=== PATIENT | male | born 1965 | race Caucasian/White ===

== ENCOUNTER 2021-06-09 16:32 | Inpatient (IN) ==
[2021-06-09] MEDS ORDERED: 0.9 % Sodium Chloride 1,000 ML IVC ONE (16:42)
[2021-06-09 17:46] LABS: Basophils # 0.1 K/mcL (0.0-0.2); Basophils % 0.4 %; Eosinophils # 0.1 K/mcL (0.0-0.6); Eosinophils % 0.5 %; Hemoglobin 15.9 g/dL (12.9-16.9); Immature Granulocytes % 0.7 % (0-4); Lymphocytes # 2.1 K/mcL (0.6-4.6); Lymphocytes % 12.6 %; Mean Corpuscular HGB Conc 33.8 g/dL (31.6-35.5); Mean Corpuscular Hemoglobin 32.2 pg (28.0-33.3); Mean Corpuscular Volume 95.1 fL (83.0-100.0); Mean Platelet Volume 11.1 fL (9.4-12.4); Monocytes # 1.3 K/mcL (0.0-1.3); Monocytes % 7.8 %; Platelet Count 394 K/mcL (140-400); Red Blood Count 4.94 M/mcL (4.19-5.50); Red Cell Distribution Width 12.3 % (11.5-14.5); White Blood Count 16.6 K/mcL (4.3-11.1)
[2021-06-09 18:00] LABS: Bilirubin,Urine Negative (Negative); Blood,Urine Negative (Negative); Clarity,Urine Clear (Clear); Color,Urine Colorless (Yellow); Glucose,Urine (UA) Normal (Normal); Ketones,Urine Negative (Negative); Leukocyte Esterase,Urine Negative (Negative); Nitrite,Urine Negative (Negative); Protein,Urine Trace mg/dL (Neg-Trace); Specific Gravity,Urine > 1.030 (1.010-1.025); Urobilinogen,Urine Normal (Normal)
[2021-06-09 18:02] LABS: Alanine Aminotransferase 34 Units/L (7-52); Albumin 4.3 g/dL (3.5-5.7); Albumin/Globulin Ratio 1.2 (1.1-2.2); Alkaline Phosphatase 129 Units/L (34-104); Aspartate Amino Transferase 19 Units/L (13-39); BUN/Creatinine Ratio 17 (6-26); Bilirubin,Direct 0.2 mg/dL (0.0-0.2); Bilirubin,Indirect 0.6 mg/dL (0.0-1.0); Bilirubin,Total 0.8 mg/dL (0.3-1.0); Blood Urea Nitrogen 13 mg/dL (6-20); Calcium 9.8 mg/dL (8.6-10.3); Carbon Dioxide 24 mEq/L (23-29); Chloride 103 mEq/L (98-107); Globulin 3.6 g/dL (2.4-3.5); Glucose 98 mg/dL (70-105); Lipase 22 Units/L (11-82); Osmolality,Calculated 284 (280-300); Potassium 3.9 mEq/L (3.5-5.1); Sodium 137 mEq/L (136-145); Total Protein 7.9 g/dL (6.4-8.9); eGFR For African Americans > 60 (> 60); eGFR For Non-African Americans > 60 (> 60)
[2021-06-09] MEDS ORDERED: MetroNIDAZOLE 500 MG/100 ML 500 MG/100 ML BAG IVPB ONE ×2 (18:42→22:00)
[2021-06-09] MEDS ORDERED: Cefepime HCl 2,000 MG in 0.9 % Sodium Chloride Mini Bag 100 ML IVPB STA (18:44)
[2021-06-09] MEDS ORDERED: Ketorolac 30 MG/ML VIAL IVP ONE (18:46)
[2021-06-09] MEDS ORDERED: *HR* HYDROcodone/Acet 5/325 mg TABLET PO ONE (18:54)
[2021-06-09] MEDS ORDERED: Melatonin 3 MG TABLET PO PRN (20:21)
[2021-06-09] MEDS ORDERED: Ondansetron 4 MG/2 ML VIAL IVP PRN (20:21)
[2021-06-09] MEDS ORDERED: Naloxone 0.4 MG/ML INJ IVP PRN (20:21)
[2021-06-09] MEDS: Ringers Solution, Lactated 1,000 ML IVC SCH (22:13)
[2021-06-10] MEDS: Fluconazole 400 MG/200 ML 400 MG/200 ML BAG IVPB SCH ×2 (00:34→23:49)
[2021-06-10 01:23] LABS: Basophils # 0.1 K/mcL (0.0-0.2); Basophils % 0.4 %; Eosinophils # 0.1 K/mcL (0.0-0.6); Eosinophils % 0.6 %; Hematocrit 43.1 % (37.5-50.1); Hemoglobin 14.7 g/dL (12.9-16.9); Immature Granulocytes % 0.5 % (0-4); Lymphocytes # 2.6 K/mcL (0.6-4.6); Lymphocytes % 19.3 %; Mean Corpuscular HGB Conc 34.1 g/dL (31.6-35.5); Mean Corpuscular Hemoglobin 32.7 pg (28.0-33.3); Monocytes # 1.1 K/mcL (0.0-1.3); Monocytes % 8.5 %; Neutrophils # 9.4 K/mcL (1.6-8.9); Platelet Count 321 K/mcL (140-400); Red Blood Count 4.49 M/mcL (4.19-5.50); Red Cell Distribution Width 12.3 % (11.5-14.5); Segmented Neutrophils % 70.7 %; White Blood Count 13.3 K/mcL (4.3-11.1)
[2021-06-10 01:33] LABS: INR 1.2; Prothrombin Time 13.3 Seconds (9.4-12.1)
[2021-06-10 01:42] LABS: Alanine Aminotransferase 27 Units/L (7-52); Albumin 3.5 g/dL (3.5-5.7); Albumin/Globulin Ratio 1.1 (1.1-2.2); Alkaline Phosphatase 107 Units/L (34-104); Aspartate Amino Transferase 17 Units/L (13-39); BUN/Creatinine Ratio 19 (6-26); Bilirubin,Total 0.8 mg/dL (0.3-1.0); Blood Urea Nitrogen 14 mg/dL (6-20); Calcium 8.9 mg/dL (8.6-10.3); Carbon Dioxide 23 mEq/L (23-29); Chloride 107 mEq/L (98-107); Globulin 3.1 g/dL (2.4-3.5); Glucose 94 mg/dL (70-105); Magnesium 1.9 mg/dL (1.6-2.6); Osmolality,Calculated 284 (280-300); Sodium 137 mEq/L (136-145); Total Protein 6.6 g/dL (6.4-8.9); eGFR For African Americans > 60 (> 60); eGFR For Non-African Americans > 60 (> 60)
[2021-06-10] MEDS: MetroNIDAZOLE 500 MG/100 ML 500 MG/100 ML BAG IVPB SCH ×3 (05:15→21:13)
[2021-06-10] MEDS ORDERED: MOM Conc 10 ML UD.LIQ PO SCH (09:00)
[2021-06-10] MEDS: MOM Conc 10 ML UD.LIQ PO SCH ×2 (09:47→14:26)
[2021-06-10] MEDS: Thiamine (B-1) 100 MG, Folic Acid 1 MG, MVI, adult with vitamin K 10 ML in 0.9 % Sodi... IVPB SCH (09:48)
[2021-06-10] MEDS: Ringers Solution, Lactated 1,000 ML IVC SCH (10:40)
[2021-06-10] MEDS: Ketorolac 15 MG/ML VIAL IVP PRN (21:18)
[2021-06-11 02:51] LABS: Hematocrit 40.3 % (37.5-50.1); Hemoglobin 13.9 g/dL (12.9-16.9); Mean Corpuscular HGB Conc 34.5 g/dL (31.6-35.5); Mean Corpuscular Hemoglobin 32.7 pg (28.0-33.3); Mean Corpuscular Volume 94.8 fL (83.0-100.0); Mean Platelet Volume 11.1 fL (9.4-12.4); Platelet Count 281 K/mcL (140-400); Red Blood Count 4.25 M/mcL (4.19-5.50); Red Cell Distribution Width 11.9 % (11.5-14.5); White Blood Count 11.7 K/mcL (4.3-11.1)
[2021-06-11 03:04] LABS: BUN/Creatinine Ratio 15 (6-26); Blood Urea Nitrogen 10 mg/dL (6-20); Calcium 8.9 mg/dL (8.6-10.3); Carbon Dioxide 25 mEq/L (23-29); Chloride 103 mEq/L (98-107); Glucose 90 mg/dL (70-105); Osmolality,Calculated 279 (280-300); Sodium 135 mEq/L (136-145); eGFR For African Americans > 60 (> 60); eGFR For Non-African Americans > 60 (> 60)
[2021-06-11] MEDS: MetroNIDAZOLE 500 MG/100 ML 500 MG/100 ML BAG IVPB SCH ×3 (05:40→21:59)
[2021-06-11] MEDS: Thiamine (B-1) 100 MG, Folic Acid 1 MG, MVI, adult with vitamin K 10 ML in 0.9 % Sodi... IVPB SCH (18:19)
[2021-06-11] MEDS: Ketorolac 15 MG/ML VIAL IVP PRN (18:48)
[2021-06-12] MEDS: Ketorolac 15 MG/ML VIAL IVP PRN ×3 (01:36→22:56)
[2021-06-12] MEDS: Fluconazole 400 MG/200 ML 400 MG/200 ML BAG IVPB SCH ×2 (01:36→23:18)
[2021-06-12] MEDS: MetroNIDAZOLE 500 MG/100 ML 500 MG/100 ML BAG IVPB SCH ×3 (05:48→21:59)
[2021-06-12] MEDS ORDERED: *HR* HYDROmorphone PF 0.5 MG/0.5 ML SYRINGE IVP PRN (07:05)
[2021-06-12] MEDS ORDERED: Ondansetron 4 MG/2 ML VIAL IVP PRN ×3 (07:05→12:05)
[2021-06-12] MEDS ORDERED: Ringers Solution, Lactated 1,000 ML IVC SCH (07:15)
[2021-06-12] MEDS ORDERED: *HR* Rocuronium Bromide 50 MG/5 ML VIAL ONE ×2 (07:33→09:01)
[2021-06-12] MEDS ORDERED: Ondansetron 4 MG/2 ML VIAL ONE (07:33)
[2021-06-12] MEDS ORDERED: *HR* Midazolam HCl 2 MG/2 ML VIAL ONE ×2 (07:33→10:47)
[2021-06-12] MEDS ORDERED: Lidocaine HCL 4 ML Topical Solution (Laryng-O-Jet Kit Sterile Pak) TP ONE (07:33)
[2021-06-12] MEDS ORDERED: Lidocaine -MPF 2% 5 ML VIAL ONE (07:33)
[2021-06-12] MEDS ORDERED: *HR* FentaNYL (PF) 100 MCG/2 ML VIAL ONE ×2 (07:33→09:42)
[2021-06-12] MEDS ORDERED: *HR* Propofol 200 MG/20 ML VIAL IVP ONE (07:33)
[2021-06-12] MEDS ORDERED: Albumin Human 5% 25.0 GM/500 ML IV.SOLN ONE (08:01)
[2021-06-12] MEDS ORDERED: Acetaminophen IV 1,000 MG/100 ML BAG IVPB ONE (08:02)
[2021-06-12] MEDS ORDERED: *HR* Magnesium Sulfate 1 GM/2 ML VIAL ONE (09:06)
[2021-06-12] MEDS ORDERED: *HR* HYDROMORPHONE 2 MG/ML VIAL ONE (10:14)
[2021-06-12] MEDS ORDERED: Sugammadex Sodium 200 MG/2 ML VIAL IV ONE (10:20)
[2021-06-12] MEDS ORDERED: Naloxone 0.4 MG/ML INJ IVP PRN (12:05)
[2021-06-12] MEDS: Metoprolol XL (24 HR) Succ 25 MG TAB.ER.24H PO SCH (16:38)
[2021-06-12 17:08] LABS: Hematocrit 40.8 % (37.5-50.1); Hemoglobin 14.3 g/dL (12.9-16.9); Mean Corpuscular Volume 94.2 fL (83.0-100.0); Mean Platelet Volume 11.3 fL (9.4-12.4); Platelet Count 308 K/mcL (140-400); Red Blood Count 4.33 M/mcL (4.19-5.50); Red Cell Distribution Width 11.8 % (11.5-14.5); White Blood Count 15.7 K/mcL (4.3-11.1)
[2021-06-12 17:22] LABS: BUN/Creatinine Ratio 13 (6-26); Blood Urea Nitrogen 10 mg/dL (6-20); Calcium 9.2 mg/dL (8.6-10.3); Carbon Dioxide 24 mEq/L (23-29); Chloride 103 mEq/L (98-107); Glucose 191 mg/dL (70-105); Osmolality,Calculated 286 (280-300); Potassium 4.4 mEq/L (3.5-5.1); Sodium 136 mEq/L (136-145); eGFR For African Americans > 60 (> 60); eGFR For Non-African Americans > 60 (> 60)
[2021-06-12] MEDS ORDERED: Thiamine (B-1) 100 MG, Folic Acid 1 MG, MVI, adult with vitamin K 10 ML in 0.9 % Sodi... IVPB SCH (18:00)
[2021-06-12] MEDS: Ringers Solution, Lactated 1,000 ML IVC SCH ×2 (19:36→21:40)
[2021-06-12] MEDS: Acetaminophen IV 1,000 MG/100 ML BAG IVPB SCH (22:56)
[2021-06-12] MEDS: Melatonin 3 MG TABLET PO PRN (22:56)
[2021-06-13] MEDS: Ringers Solution, Lactated 1,000 ML IVC SCH ×3 (03:30→17:37)
[2021-06-13 05:06] LABS: Hematocrit 35.1 % (37.5-50.1); Mean Corpuscular HGB Conc 34.5 g/dL (31.6-35.5); Mean Corpuscular Hemoglobin 32.4 pg (28.0-33.3); Mean Corpuscular Volume 94.1 fL (83.0-100.0); Mean Platelet Volume 11.6 fL (9.4-12.4); Platelet Count 274 K/mcL (140-400); Red Blood Count 3.73 M/mcL (4.19-5.50); Red Cell Distribution Width 11.9 % (11.5-14.5); White Blood Count 17.5 K/mcL (4.3-11.1)
[2021-06-13 05:11] LABS: Hemoglobin 12.1 g/dL (12.9-16.9)
[2021-06-13 05:22] LABS: BUN/Creatinine Ratio 16 (6-26); Blood Urea Nitrogen 9 mg/dL (6-20); Calcium 8.8 mg/dL (8.6-10.3); Carbon Dioxide 24 mEq/L (23-29); Chloride 104 mEq/L (98-107); Glucose 175 mg/dL (70-105); Osmolality,Calculated 281 (280-300); Potassium 4.6 mEq/L (3.5-5.1); Sodium 134 mEq/L (136-145); eGFR For African Americans > 60 (> 60); eGFR For Non-African Americans > 60 (> 60)
[2021-06-13] MEDS: Acetaminophen IV 1,000 MG/100 ML BAG IVPB SCH ×4 (05:27→23:33)
[2021-06-13] MEDS: MetroNIDAZOLE 500 MG/100 ML 500 MG/100 ML BAG IVPB SCH ×3 (05:49→23:49)
[2021-06-13] MEDS: Metoprolol XL (24 HR) Succ 25 MG TAB.ER.24H PO SCH (07:44)
[2021-06-13] MEDS: Melatonin 3 MG TABLET PO PRN (23:04)
[2021-06-14] MEDS: Fluconazole 400 MG/200 ML 400 MG/200 ML BAG IVPB SCH (01:01)
[2021-06-14] MEDS: Ringers Solution, Lactated 1,000 ML IVC SCH ×2 (03:03→10:40)
[2021-06-14] MEDS: Acetaminophen IV 1,000 MG/100 ML BAG IVPB SCH ×3 (05:45→18:08)
[2021-06-14 05:51] LABS: Hematocrit 33.2 % (37.5-50.1); Hemoglobin 10.9 g/dL (12.9-16.9); Mean Corpuscular HGB Conc 32.8 g/dL (31.6-35.5); Mean Corpuscular Hemoglobin 31.8 pg (28.0-33.3); Mean Corpuscular Volume 96.8 fL (83.0-100.0); Mean Platelet Volume 11.8 fL (9.4-12.4); Platelet Count 256 K/mcL (140-400); Red Blood Count 3.43 M/mcL (4.19-5.50); Red Cell Distribution Width 12.3 % (11.5-14.5); White Blood Count 14.1 K/mcL (4.3-11.1)
[2021-06-14] MEDS: MetroNIDAZOLE 500 MG/100 ML 500 MG/100 ML BAG IVPB SCH ×3 (06:04→20:26)
[2021-06-14 06:16] LABS: BUN/Creatinine Ratio 16 (6-26); Blood Urea Nitrogen 9 mg/dL (6-20); Calcium 8.9 mg/dL (8.6-10.3); Carbon Dioxide 26 mEq/L (23-29); Chloride 103 mEq/L (98-107); Glucose 118 mg/dL (70-105); Osmolality,Calculated 280 (280-300); Potassium 4.1 mEq/L (3.5-5.1); Sodium 135 mEq/L (136-145); eGFR For African Americans > 60 (> 60); eGFR For Non-African Americans > 60 (> 60)
[2021-06-14] MEDS: Metoprolol XL (24 HR) Succ 25 MG TAB.ER.24H PO SCH (10:40)
[2021-06-15] MEDS: Fluconazole 400 MG/200 ML 400 MG/200 ML BAG IVPB SCH (00:55)
[2021-06-15] MEDS: Ringers Solution, Lactated 1,000 ML IVC SCH (00:57)
[2021-06-15] MEDS: Acetaminophen IV 1,000 MG/100 ML BAG IVPB SCH ×3 (00:57→11:42)
[2021-06-15 06:17] LABS: Hematocrit 33.5 % (37.5-50.1); Hemoglobin 11.3 g/dL (12.9-16.9); Mean Corpuscular HGB Conc 33.7 g/dL (31.6-35.5); Mean Corpuscular Hemoglobin 32.5 pg (28.0-33.3); Mean Corpuscular Volume 96.3 fL (83.0-100.0); Mean Platelet Volume 12.1 fL (9.4-12.4); Platelet Count 256 K/mcL (140-400); Red Blood Count 3.48 M/mcL (4.19-5.50); Red Cell Distribution Width 12.3 % (11.5-14.5); White Blood Count 10.8 K/mcL (4.3-11.1)
[2021-06-15] MEDS: MetroNIDAZOLE 500 MG/100 ML 500 MG/100 ML BAG IVPB SCH (06:43)
[2021-06-15 06:47] LABS: BUN/Creatinine Ratio 11 (6-26); Blood Urea Nitrogen 7 mg/dL (6-20); Calcium 8.9 mg/dL (8.6-10.3); Carbon Dioxide 28 mEq/L (23-29); Chloride 103 mEq/L (98-107); Glucose 88 mg/dL (70-105); Osmolality,Calculated 285 (280-300); Potassium 3.6 mEq/L (3.5-5.1); Sodium 139 mEq/L (136-145); eGFR For African Americans > 60 (> 60); eGFR For Non-African Americans > 60 (> 60)
[2021-06-15] MEDS: Metoprolol XL (24 HR) Succ 25 MG TAB.ER.24H PO SCH (09:53)
[2021-06-15 10:56] VITALS: BP 147/84; PULSE 65; TEMP 98.2; O2SAT 93
[2021-06-15] MEDS ORDERED: metroNIDAZOLE 500 MG TABLET PO SCH (15:00)
== END 2021-06-15 16:50 | disposition home or self-care (01) | DRG 854 ==
LOC: 3BNU 16:32 → EMEROOARM 16:32 → SUATTDRO 19:06 → 3BNU 20:05
PROVIDERS: ADMIT Internal Medicine; ATTEND Registered Nurse

== ENCOUNTER 2021-11-03 12:18 | Inpatient (IN) ==
[2021-11-03] MEDS ORDERED: Clindamycin 900 MG/50 ML 900 MG/50 ML IV.SOLN IVPB ONE (12:35)
[2021-11-03] MEDS ORDERED: Ringers Solution, Lactated 1,000 ML IVC SCH (12:45)
[2021-11-03] MEDS ORDERED: Acetaminophen IV 1,000 MG/100 ML BAG IVPB ONE (13:04)
[2021-11-03] MEDS ORDERED: Ondansetron 4 MG/2 ML VIAL IVP PRN ×2 (13:13→21:34)
[2021-11-03] MEDS ORDERED: Albuterol 2.5 MG/3 ML NEBULIZER IH PRN (13:13)
[2021-11-03] MEDS ORDERED: *HR* Meperidine 25 MG/ML SYRINGE IVP PRN (13:13)
[2021-11-03] MEDS ORDERED: Lidocaine -MPF 2% 5 ML VIAL ONE ×2 (13:26→19:15)
[2021-11-03] MEDS ORDERED: Ondansetron 4 MG/2 ML VIAL ONE (13:26)
[2021-11-03] MEDS ORDERED: *HR* FentaNYL (PF) 100 MCG/2 ML VIAL ONE ×2 (13:27→19:31)
[2021-11-03] MEDS ORDERED: *HR* Midazolam HCl 2 MG/2 ML VIAL ONE (13:27)
[2021-11-03] MEDS ORDERED: *HR* HYDROMORPHONE 2 MG/ML VIAL ONE (13:27)
[2021-11-03] MEDS ORDERED: *HR* Rocuronium Bromide 50 MG/5 ML VIAL ONE ×3 (13:27→18:58)
[2021-11-03] MEDS ORDERED: Lidocaine HCL 4 ML Topical Solution (Laryng-O-Jet Kit Sterile Pak) TP ONE (13:27)
[2021-11-03] MEDS ORDERED: *HR* Propofol 200 MG/20 ML VIAL IVP ONE (13:27)
[2021-11-03] MEDS ORDERED: Ketamine HCL *QUVA* 50mg (1mL) SYRINGE ONE (16:07)
[2021-11-03] MEDS ORDERED: *HR* Metoprolol 5 MG/5 ML VIAL IVP ONE (17:02)
[2021-11-03] MEDS ORDERED: *HR* Magnesium Sulfate 1 GM/2 ML VIAL ONE (17:59)
[2021-11-03] MEDS ORDERED: *HR* Labetalol 20 MG/4 ML SYRINGE IVP ONE (18:28)
[2021-11-03] MEDS: *HR* HYDROmorphone PF 0.5 MG/0.5 ML SYRINGE IVP PRN ×4 (20:00→20:40)
[2021-11-03] MEDS ORDERED: *HR* Metoprolol 5 MG/5 ML VIAL IVP PRN (21:34)
[2021-11-03] MEDS ORDERED: Acetaminophen IV 1,000 MG/100 ML BAG IVPB SCH (21:34)
[2021-11-03] MEDS ORDERED: MetroNIDAZOLE 500 MG/100 ML 500 MG/100 ML BAG IVPB SCH (21:34)
[2021-11-03] MEDS ORDERED: Naloxone 0.4 MG/ML INJ IVP PRN (21:34)
[2021-11-03] MEDS: 0.9 % Sodium Chloride 1,000 ML IVC SCH (22:15)
[2021-11-03] MEDS: Ketorolac 30 MG/ML VIAL IVP SCH (22:21)
[2021-11-03] MEDS: *HR* Metoprolol 5 MG/5 ML VIAL IVP SCH (22:27)
[2021-11-04] MEDS: Ketorolac 30 MG/ML VIAL IVP SCH ×4 (03:20→20:38)
[2021-11-04] MEDS: *HR* Metoprolol 5 MG/5 ML VIAL IVP SCH ×4 (03:22→22:31)
[2021-11-04] MEDS: Acetaminophen IV 1,000 MG/100 ML BAG IVPB SCH ×4 (04:47→23:05)
[2021-11-04 06:14] LABS: Basophils % 0.1 %; Hematocrit 46.7 % (37.5-50.1); Hemoglobin 16.2 g/dL (12.9-16.9); Immature Granulocytes % 0.4 % (0-4); Lymphocytes # 0.7 K/mcL (0.6-4.6); Lymphocytes % 4.4 %; Mean Corpuscular HGB Conc 34.7 g/dL (31.6-35.5); Mean Corpuscular Hemoglobin 32.2 pg (28.0-33.3); Mean Corpuscular Volume 92.8 fL (83.0-100.0); Mean Platelet Volume 11.5 fL (9.4-12.4); Monocytes # 1.5 K/mcL (0.0-1.3); Monocytes % 9.3 %; Neutrophils # 13.9 K/mcL (1.6-8.9); Platelet Count 221 K/mcL (140-400); Red Blood Count 5.03 M/mcL (4.19-5.50); Red Cell Distribution Width 14.4 % (11.5-14.5); Segmented Neutrophils % 85.8 %; White Blood Count 16.3 K/mcL (4.3-11.1)
[2021-11-04 07:06] LABS: BUN/Creatinine Ratio 21 (6-26); Blood Urea Nitrogen 17 mg/dL (6-20); Calcium 8.8 mg/dL (8.6-10.3); Carbon Dioxide 21 mEq/L (23-29); Chloride 104 mEq/L (98-107); Glucose 151 mg/dL (70-105); Magnesium 2.1 mg/dL (1.6-2.6); Osmolality,Calculated 282 (280-300); Phosphorous 3.8 mg/dL (2.7-4.5); Potassium 4.4 mEq/L (3.5-5.1); Sodium 134 mEq/L (136-145); eGFR For African Americans > 60 (> 60); eGFR For Non-African Americans > 60 (> 60)
[2021-11-04] MEDS: Pantoprazole 40 MG VIAL IVP SCH (07:55)
[2021-11-04] MEDS: MetroNIDAZOLE 500 MG/100 ML 500 MG/100 ML BAG IVPB SCH ×2 (07:57→14:31)
[2021-11-04] MEDS: 0.9 % Sodium Chloride 1,000 ML IVC SCH ×3 (07:57→23:04)
[2021-11-04] MEDS ORDERED: Orphenadrine 60 MG/2 ML VIAL IVP PRN (09:45)
[2021-11-04] MEDS: Ipratropium/Albuterol Neb 3 ML IH SCH ×4 (11:56→23:22)
[2021-11-04] MEDS: *HR* Heparin 5,000 UNIT/ML VIAL SQ SCH (16:45)
[2021-11-05 02:15] LABS: Basophils % 0.1 %; Eosinophils % 0.1 %; Hematocrit 38.5 % (37.5-50.1); Immature Granulocytes % 0.5 % (0-4); Lymphocytes # 1.5 K/mcL (0.6-4.6); Lymphocytes % 13.1 %; Mean Corpuscular HGB Conc 34.8 g/dL (31.6-35.5); Mean Corpuscular Hemoglobin 32.4 pg (28.0-33.3); Mean Corpuscular Volume 93.2 fL (83.0-100.0); Mean Platelet Volume 11.6 fL (9.4-12.4); Monocytes # 1.1 K/mcL (0.0-1.3); Monocytes % 10.2 %; Neutrophils # 8.5 K/mcL (1.6-8.9); Platelet Count 169 K/mcL (140-400); Red Blood Count 4.13 M/mcL (4.19-5.50); Red Cell Distribution Width 14.6 % (11.5-14.5); White Blood Count 11.1 K/mcL (4.3-11.1)
[2021-11-05 02:31] LABS: Hemoglobin 13.4 g/dL (12.9-16.9)
[2021-11-05 02:32] LABS: BUN/Creatinine Ratio 19 (6-26); Blood Urea Nitrogen 13 mg/dL (6-20); Calcium 8.2 mg/dL (8.6-10.3); Carbon Dioxide 24 mEq/L (23-29); Chloride 105 mEq/L (98-107); Glucose 100 mg/dL (70-105); Magnesium 1.9 mg/dL (1.6-2.6); Osmolality,Calculated 280 (280-300); Phosphorous 2.6 mg/dL (2.7-4.5); Potassium 3.5 mEq/L (3.5-5.1); Sodium 135 mEq/L (136-145); eGFR For African Americans > 60 (> 60); eGFR For Non-African Americans > 60 (> 60)
[2021-11-05] MEDS: Ketorolac 30 MG/ML VIAL IVP SCH ×4 (02:53→21:36)
[2021-11-05] MEDS: *HR* Metoprolol 5 MG/5 ML VIAL IVP SCH ×4 (02:53→21:36)
[2021-11-05] MEDS: Ipratropium/Albuterol Neb 3 ML IH SCH ×2 (03:48→07:35)
[2021-11-05] MEDS: Acetaminophen IV 1,000 MG/100 ML BAG IVPB SCH ×4 (05:04→23:26)
[2021-11-05] MEDS: *HR* Heparin 5,000 UNIT/ML VIAL SQ SCH ×2 (05:05→17:25)
[2021-11-05] MEDS: 0.9 % Sodium Chloride 1,000 ML IVC SCH ×3 (06:53→19:07)
[2021-11-05] MEDS: Pantoprazole 40 MG VIAL IVP SCH (09:14)
[2021-11-05] MEDS: Gabapentin 300 MG CAPSULE PO SCH ×2 (09:15→09:35)
[2021-11-05] MEDS ORDERED: traZODone 50 MG TABLET PO ONE (21:00)
[2021-11-05] MEDS: traZODone 50 MG TABLET PO SCH (21:34)
[2021-11-06 01:36] LABS: Basophils % 0.3 %; Eosinophils # 0.1 K/mcL (0.0-0.6); Eosinophils % 1.4 %; Hemoglobin 12.6 g/dL (12.9-16.9); Immature Granulocytes % 0.8 % (0-4); Lymphocytes # 1.6 K/mcL (0.6-4.6); Lymphocytes % 16.3 %; Mean Corpuscular HGB Conc 34.1 g/dL (31.6-35.5); Mean Corpuscular Hemoglobin 32.1 pg (28.0-33.3); Mean Corpuscular Volume 94.1 fL (83.0-100.0); Mean Platelet Volume 11.8 fL (9.4-12.4); Monocytes # 0.8 K/mcL (0.0-1.3); Monocytes % 8.3 %; Neutrophils # 7.1 K/mcL (1.6-8.9); Platelet Count 175 K/mcL (140-400); Red Blood Count 3.93 M/mcL (4.19-5.50); Red Cell Distribution Width 14.5 % (11.5-14.5); Segmented Neutrophils % 72.9 %; White Blood Count 9.8 K/mcL (4.3-11.1)
[2021-11-06 01:48] LABS: BUN/Creatinine Ratio 12 (6-26); Blood Urea Nitrogen 9 mg/dL (6-20); Calcium 8.5 mg/dL (8.6-10.3); Carbon Dioxide 23 mEq/L (23-29); Chloride 107 mEq/L (98-107); Glucose 80 mg/dL (70-105); Magnesium 1.9 mg/dL (1.6-2.6); Osmolality,Calculated 282 (280-300); Phosphorous 2.4 mg/dL (2.7-4.5); Potassium 3.7 mEq/L (3.5-5.1); Sodium 137 mEq/L (136-145); eGFR For African Americans > 60 (> 60); eGFR For Non-African Americans > 60 (> 60)
[2021-11-06] MEDS: Ketorolac 30 MG/ML VIAL IVP SCH (03:20)
[2021-11-06] MEDS: *HR* Metoprolol 5 MG/5 ML VIAL IVP SCH (03:20)
[2021-11-06] MEDS: Acetaminophen IV 1,000 MG/100 ML BAG IVPB SCH (04:33)
[2021-11-06] MEDS: *HR* Heparin 5,000 UNIT/ML VIAL SQ SCH ×2 (04:34→16:08)
[2021-11-06] MEDS: Pantoprazole 40 MG VIAL IVP SCH (08:32)
[2021-11-06] MEDS: Gabapentin 300 MG CAPSULE PO SCH (08:32)
[2021-11-06] MEDS: *HR* OxyCODONE Immed Rel 5 MG TABLET PO PRN ×2 (08:39→23:14)
[2021-11-06] MEDS: lisinopriL 20 MG TABLET PO SCH (08:39)
[2021-11-06] MEDS: Ibuprofen 800 MG TABLET PO SCH ×3 (08:39→23:11)
[2021-11-06] MEDS: Metoprolol XL (24 HR) Succ 25 MG TAB.ER.24H PO SCH (08:39)
[2021-11-06] MEDS: traZODone 50 MG TABLET PO SCH (21:17)
[2021-11-07 04:39] LABS: Basophils % 0.5 %; Eosinophils # 0.3 K/mcL (0.0-0.6); Eosinophils % 4.1 %; Hematocrit 36.1 % (37.5-50.1); Hemoglobin 12.6 g/dL (12.9-16.9); Immature Granulocytes % 0.8 % (0-4); Lymphocytes # 1.5 K/mcL (0.6-4.6); Lymphocytes % 18.4 %; Mean Corpuscular HGB Conc 34.9 g/dL (31.6-35.5); Mean Corpuscular Hemoglobin 32.4 pg (28.0-33.3); Mean Corpuscular Volume 92.8 fL (83.0-100.0); Mean Platelet Volume 11.2 fL (9.4-12.4); Monocytes # 0.8 K/mcL (0.0-1.3); Monocytes % 9.3 %; Neutrophils # 5.6 K/mcL (1.6-8.9); Platelet Count 202 K/mcL (140-400); Red Blood Count 3.89 M/mcL (4.19-5.50); Red Cell Distribution Width 14.4 % (11.5-14.5); Segmented Neutrophils % 66.9 %; White Blood Count 8.3 K/mcL (4.3-11.1)
[2021-11-07] MEDS: *HR* Heparin 5,000 UNIT/ML VIAL SQ SCH ×2 (04:53→16:12)
[2021-11-07 05:01] LABS: BUN/Creatinine Ratio 13 (6-26); Blood Urea Nitrogen 8 mg/dL (6-20); Calcium 8.5 mg/dL (8.6-10.3); Carbon Dioxide 24 mEq/L (23-29); Chloride 108 mEq/L (98-107); Glucose 91 mg/dL (70-105); Osmolality,Calculated 288 (280-300); Potassium 3.4 mEq/L (3.5-5.1); Sodium 140 mEq/L (136-145); eGFR For African Americans > 60 (> 60); eGFR For Non-African Americans > 60 (> 60)
[2021-11-07] MEDS: *HR* OxyCODONE Immed Rel 5 MG TABLET PO PRN ×2 (05:49→13:07)
[2021-11-07] MEDS: Pantoprazole 40 MG VIAL IVP SCH (08:33)
[2021-11-07] MEDS: Ibuprofen 800 MG TABLET PO SCH ×2 (08:35→16:08)
[2021-11-07] MEDS: Metoprolol XL (24 HR) Succ 25 MG TAB.ER.24H PO SCH (08:35)
[2021-11-07] MEDS: Gabapentin 300 MG CAPSULE PO SCH (08:35)
[2021-11-07] MEDS: lisinopriL 20 MG TABLET PO SCH (08:35)
[2021-11-07] MEDS: traZODone 50 MG TABLET PO SCH (19:51)
[2021-11-08] MEDS: Ibuprofen 800 MG TABLET PO SCH ×2 (00:21→07:49)
[2021-11-08 04:53] LABS: Basophils # 0.1 K/mcL (0.0-0.2); Basophils % 0.9 %; Eosinophils # 0.5 K/mcL (0.0-0.6); Eosinophils % 6.3 %; Hematocrit 36.7 % (37.5-50.1); Immature Granulocytes % 2.5 % (0-4); Lymphocytes # 1.8 K/mcL (0.6-4.6); Lymphocytes % 23.2 %; Mean Corpuscular HGB Conc 35.4 g/dL (31.6-35.5); Mean Corpuscular Hemoglobin 32.8 pg (28.0-33.3); Mean Corpuscular Volume 92.7 fL (83.0-100.0); Mean Platelet Volume 10.9 fL (9.4-12.4); Monocytes # 0.9 K/mcL (0.0-1.3); Monocytes % 11.9 %; Neutrophils # 4.3 K/mcL (1.6-8.9); Platelet Count 230 K/mcL (140-400); Red Blood Count 3.96 M/mcL (4.19-5.50); Red Cell Distribution Width 14.2 % (11.5-14.5); Segmented Neutrophils % 55.2 %; White Blood Count 7.7 K/mcL (4.3-11.1)
[2021-11-08 05:12] LABS: BUN/Creatinine Ratio 15 (6-26); Blood Urea Nitrogen 10 mg/dL (6-20); Calcium 8.6 mg/dL (8.6-10.3); Carbon Dioxide 24 mEq/L (23-29); Chloride 107 mEq/L (98-107); Glucose 94 mg/dL (70-105); Osmolality,Calculated 291 (280-300); Potassium 3.5 mEq/L (3.5-5.1); Sodium 141 mEq/L (136-145); eGFR For African Americans > 60 (> 60); eGFR For Non-African Americans > 60 (> 60)
[2021-11-08] MEDS: *HR* Heparin 5,000 UNIT/ML VIAL SQ SCH (05:39)
[2021-11-08] MEDS ORDERED: *HR* OxyCODONE/APAP 5/325 TABLET PO PRN (07:35)
[2021-11-08] MEDS: Gabapentin 300 MG CAPSULE PO SCH (07:49)
[2021-11-08] MEDS: lisinopriL 20 MG TABLET PO SCH (07:49)
[2021-11-08] MEDS: Metoprolol XL (24 HR) Succ 25 MG TAB.ER.24H PO SCH (07:49)
[2021-11-08] MEDS ORDERED: Furosemide 40 MG/4 ML VIAL IVP ONE (08:23)
[2021-11-08 11:14] VITALS: BP 151/97; PULSE 97; TEMP 98; O2SAT 93
== END 2021-11-08 13:45 | disposition home or self-care (01) | DRG 331 ==
LOC: SAMDAY 12:18 → 3ANU 21:30
PROVIDERS: ADMIT Surgery; ATTEND Surgery